=== PATIENT | female | born 1970 | race Caucasian/White ===

== ENCOUNTER → 2021-06-24 | Outpatient (CLI) | payer OTHER ==
[~2021-06-24] MED LIST: AMLO2.5T3 PO; DOXY100C3 PO; ESTR1TD TD; GABA-282 PO; VITA1CAP21 PO; VITMTA PO; ZOLP10TA2 PO
--- NOTE | 2021-06-25 19:32 | REP ---
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 COMPARISON: None. TECHNIQUE: Following the intravenous injection of 8.7 mCi of FDG and a standard uptake period, a noncontrast CT scan, followed by a PET scan were acquired along the length of the body from the base of the skull to the mid thighs. A non-contrast CT was used for anatomic localization and photon attenuation correction of the PET scan. Patient's blood glucose level at the time of injection was not obtained. FINDINGS: Head and neck: There is a normal distribution of FDG activity in the visualized brain parenchyma. There is normal uptake within the soft tissues of the neck and glandular structures. There is a mucous retention cyst or polyp in the right maxillary sinus. The thyroid gland is homogeneous lead enlarged. There is no abnormal FDG activity within the thyroid gland. There is no lymphadenopathy identified. Chest: There is linear scarring in the lingula. There is no abnormal FDG activity in the pulmonary parenchyma. There are no pleural effusions. The heart size is normal. There is no pericardial effusion. There is minimal calcific vascular disease of the thoracic aorta. There is no adenopathy in the mediastinum, hilum or axilla by size criterion or metabolic activity. Abdomen and pelvis: There is a 2.5 x 1.3 x 1.3 cm focal cortical abnormality in the interpolar cortex of the left kidney. There is associated FDG activity, max SUV 9.7. There is an associated radiodense area consistent with site of tumor ablation. There is a normal distribution of FDG activity within the gastrointestinal tract. No evidence of lymphadenopathy. There is calcific vascular disease of the abdominal aorta. There are tubal ligation clips in the pelvis. Musculoskeletal: There are no suspicious hypermetabolic, osteolytic or osteo sclerotic lesions. There is diffuse heterogeneity of the medullary bone, may reflect chemotherapy. There is no associated abnormal FDG activity. IMPRESSION: 1. Local recurrence/residual tumor in the interpolar cortex of the left kidney. 2. No evidence of metastatic disease. 3. Other findings as noted. <Electronically signed by Pramod Salgado > [id number]
== END ==
LOC: M PLARAD 09:39
PROVIDERS: ATTEND Internal Medicine Medical Oncology
DX: C64.2 Malignant neoplasm of left kidney, except renal pelvis (principal)
CPT/HCPCS: 78815; A9552